=== PATIENT | male | born 1940 | race Caucasian/White ===

== ENCOUNTER 2018-12-28 10:23 | Emergency (ER) | payer MEDICARE ==
[~2018-12-28] VITALS: Ht 172.7 cm; Wt 130.0 kg
[2018-12-28] MEDS ORDERED: NITROGLYCERIN OINT 1GM/INCH UDPKT TD ONE (11:15)
[2018-12-28] MEDS ORDERED: HYDRALAZINE 20MG/ML VIAL IV ONE (11:15)
[2018-12-28] MEDS ORDERED: ASPIRIN 81MG TABLET PO ONE (11:15)
[2018-12-28 11:25] LABS: BASOPHILS % 1.1 % (0.0-2.0); CHLORIDE 102 mEq/L (98-107); EOSINOPHILS % 1.4 % (0.0-5.0); HEMATOCRIT. 41.4 % (42.0-52.0); HEMOGLOBIN. 13.6 g/dL (14.0-18.0); LYMPHOCYTES % 20.9 % (20.0-50.0); MEAN CORPUSCULAR HEMOGLOBIN 28.3 pg (28.0-32.0); MEAN PLATELET VOLUME 8.1 fl (7.4-10.4); MONOCYTES % 7.7 % (2.0-8.0); NEUTROPHILS % 68.9 % (40.0-76.0); PLATELET 367 x1000/uL (130-400); RED BLOOD CELL COUNT 4.81 mill/uL (4.7-6.1); RED CELL DISTRIBUTION WIDTH 15.5 % (11.6-14.6)
[2018-12-28 11:30] LABS: INR 1.1; PARTIAL THROMBOPLASTIN TIME 31.2 sec (23.4-31.0); PROTHROMBIN TIME 11.4 sec (9.6-11.0)
[2018-12-28 11:44] LABS: CLARITY URINE CLEAR (CLEAR); COLOR URINE YELLOW (YELLOW); KETONES URINE NEGATIVE (NEGATIVE); LEUKOCYTE ESTERASE URINE NEGATIVE (NEGATIVE); NITRITE URINE NEGATIVE (NEGATIVE); OCCULT BLOOD URINE 1+ (NEGATIVE); PH URINE 6.5 (4.5-8.0); PROTEIN URINE NEGATIVE (NEGATIVE); SPECIFIC GRAVITY URINE 1.011 (1.005-1.030); UROBILINOGEN URINE 0.2 E.U./dL (0.2-1.0)
[2018-12-28] MEDS ORDERED: FUROSEMIDE 40MG/4ML VIAL IVP ONE (11:45)
[2018-12-28 17:32] VITALS: BP 156/90
== END 2018-12-28 18:03 | disposition short-term general hospital (02) ==
LOC: ER 10:23 → EDBEDREQ 12:02 → ER 18:03 → CANBEDREQ 12-29 00:24
DX: R33.9 Retention of urine, unspecified (principal); I11.0 Hypertensive heart disease with heart failure; I50.9 Heart failure, unspecified; E11.9 Type 2 diabetes mellitus without complications; E78.00 Pure hypercholesterolemia, unspecified; I25.10 Atherosclerotic heart disease of native coronary artery without angina pectoris
CPT/HCPCS: 36415; 51702; 71045; 80053; 81003; 83880; 84484; 85025; 85610; 85730; 87086; 93005; 96374; 96375; 99285; J0360; J1940

== ENCOUNTER 2019-01-16 15:50 | Inpatient (IN) | payer MEDICARE ==
[~2019-01-16] VITALS: Ht 167.6 cm; Wt 128.4 kg
[2019-01-16] MEDS ORDERED: ONDANSETRON HCL 4MG/2ML INJ IV STA (16:13)
[2019-01-16] MEDS ORDERED: PIPERACILLIN/TAZ 3.375G PREMIX 50 ML IV ONE (16:15)
[2019-01-16] MEDS ORDERED: SODIUM CHLORIDE 0.9% 1000ML BAG (SEPSIS BOLUS) IV ONE (16:15)
[2019-01-16 16:39] LABS: BASOPHILS % 0.1 % (0.0-2.0); EOSINOPHILS % 0.8 % (0.0-5.0); HEMATOCRIT. 43.3 % (42.0-52.0); HEMOGLOBIN. 14.3 g/dL (14.0-18.0); MEAN CORPUSCULAR HEMOGLOBIN 28.7 pg (28.0-32.0); MEAN CORPUSCULAR VOLUME 86.7 fL (80.0-94.0); MEAN PLATELET VOLUME 8.8 fl (7.4-10.4); MONOCYTES % 1.1 % (2.0-8.0); PLATELET 192 x1000/uL (130-400); RED CELL DISTRIBUTION WIDTH 16.6 % (11.6-14.6)
[2019-01-16 16:44] LABS: CHLORIDE 102 mEq/L (98-107)
[2019-01-16 16:45] LABS: PROTHROMBIN TIME 10.6 sec (9.6-11.0)
[2019-01-16 16:52] LABS: BG BASE EXCESS 0.8 mmol/L (-2.0-2.0); BG BILEVEL POS AIRWAY PRESSURE 16/5; BG CARBOXYHEMOGLOBIN 0.2 % (0.5-1.5); BG DEOXYHEMOGLOBIN 0.3 % (0.0-5.0); BG FRACTION INSPIRED OXYGEN 100; BG HCO3 ACT 23.7 mmol/L (22.0-26.0); BG METHEMOGLOBIN 0.1 % (0.0-1.5); BG OXYGEN SATURATION 99.7 % (92.0-98.5); BG OXYHEMOGLOBIN 99.4 % (94.0-97.0); BG PCO2 32.8 mmHg (35.0-45.0); BG PH 7.476 (7.350-7.450); BG PO2 568.5 mmHg (75.0-100.0); BG SAMPLE SITE RIGHT RADIAL; BG TOTAL HEMOGLOBIN 13.8 g/dL (12.0-18.0); BG VENT MODE MASK - BIPAP
[2019-01-16] MEDS ORDERED: HYDROMORPHONE HCL/PF 2MG/ML CPJ IV ONE (18:15)
[2019-01-16 18:34] LABS: CLARITY URINE CLOUDY (CLEAR); COLOR URINE YELLOW (YELLOW); KETONES URINE NEGATIVE (NEGATIVE); LEUKOCYTE ESTERASE URINE 1+ (NEGATIVE); NITRITE URINE POSITIVE (NEGATIVE); OCCULT BLOOD URINE 2+ (NEGATIVE); PH URINE 5.5 (4.5-8.0); PROTEIN URINE 3+ (NEGATIVE); SPECIFIC GRAVITY URINE 1.017 (1.005-1.030)
[2019-01-16] MEDS ORDERED: HYDROCODONE/ACETAMINOPHEN 10/325MG TABLET PO PRN (21:00)
[2019-01-16] MEDS ORDERED: IPRATROPIUM/ALBUTEROL 0.5-3(2.5)MG/3ML NEB INH PRN (21:00)
[2019-01-16] MEDS ORDERED: HYDROMORPHONE HCL/PF 2MG/ML CPJ IV PRN (21:00)
[2019-01-16] MEDS ORDERED: HYDRALAZINE 20MG/ML VIAL IV PRN (21:00)
[2019-01-16] MEDS ORDERED: DOCUSATE SODIUM 100MG CAPSULE PO PRN (21:00)
[2019-01-16] MEDS ORDERED: DIPHENHYDRAMINE 50MG/ML VIAL IV PRN (21:00)
[2019-01-16] MEDS ORDERED: ONDANSETRON HCL 4MG/2ML INJ IV PRN (21:00)
[2019-01-16] MEDS ORDERED: GUAIFENESIN 200MG/10ML SUGAR FREE UDC PO PRN (21:00)
[2019-01-16] MEDS ORDERED: NA PHOS,M-B/NA PHOS,DI-BA ENEMA 118ML PR PRN (21:00)
[2019-01-16] MEDS ORDERED: ENOXAPARIN 40MG/0.4ML SYR SUBCUT SCH (21:00)
[2019-01-16] MEDS ORDERED: MAGNESIUM/ALUMINUM HYDROXIDE/SIMETHICONE 30ML UDC PO PRN (21:00)
[2019-01-16] MEDS ORDERED: CLONIDINE 0.1MG TABLET PO PRN (21:00)
[2019-01-16] MEDS ORDERED: LORAZEPAM 2MG/ML CPJ IV PRN (21:00)
[2019-01-16] MEDS ORDERED: DEXTROSE 50% WATER 50ML SYRINGE IV PRN (22:45)
[2019-01-17] VITALS: BP_SYST 114; BP_DIAS 60; BP_DIAS 62
[2019-01-17 00:57] LABS: CREATINE KINASE MB FRACTION 1.2 ng/mL (0.5-3.6)
[2019-01-17] MEDS ORDERED: VANCOMYCIN 1,750 MG in DEXT 5% WATER 500 ML IV SCH (01:00)
[2019-01-17] MEDS: PIPERACILLIN/TAZ 3.375G PREMIX 50 ML IV SCH ×4 (01:22→21:36)
[2019-01-17] MEDS: ACETAMINOPHEN 325MG TABLET PO PRN (01:37)
[2019-01-17 04:00] VITALS: BP 143/72
[2019-01-17] MEDS ORDERED: METO-411 MT (06:24)
[2019-01-17] MEDS ORDERED: METF500S7 PO (06:24)
[2019-01-17] MEDS ORDERED: OXYB5TAB11 MT (06:24)
[2019-01-17] MEDS ORDERED: FISH MT (06:24)
[2019-01-17] MEDS ORDERED: NIFE30TA83 PO (06:24)
[2019-01-17] MEDS ORDERED: LOSA50TA41 MT (06:24)
[2019-01-17] MEDS ORDERED: TAMS-11 MT (06:24)
[2019-01-17] MEDS ORDERED: ATOR10TA69 MT (06:24)
[2019-01-17] MEDS: BLOOD SUGAR DIAGNOSTIC STRIP TEST SCH ×4 (06:55→21:36)
[2019-01-17] MEDS: SODIUM CHLORIDE 0.9% INJ 3ML FLUSH IVF SCH ×3 (06:55→21:36)
[2019-01-17] MEDS: INSULIN LISPRO 100 UNITS/ML SUBCUT SCH ×4 (07:11→21:35)
[2019-01-17 08:00] VITALS: BP 125/64
[2019-01-17 08:02] LABS: HEMATOCRIT. 38.4 % (42.0-52.0); HEMOGLOBIN. 12.5 g/dL (14.0-18.0); MEAN CORPUSCULAR HEMOGLOBIN 28.5 pg (28.0-32.0); MEAN CORPUSCULAR VOLUME 87.2 fL (80.0-94.0); PLATELET 156 x1000/uL (130-400); RED BLOOD CELL COUNT 4.41 mill/uL (4.7-6.1); RED CELL DISTRIBUTION WIDTH 16.3 % (11.6-14.6)
[2019-01-17 08:30] LABS: CHLORIDE 105 mEq/L (98-107)
[2019-01-17 08:42] LABS: CREATINE KINASE MB FRACTION 1.6 ng/mL (0.5-3.6)
[2019-01-17 08:43] LABS: T4 FREE 0.94 ng/dL (0.76-1.46)
[2019-01-17 08:45] LABS: CREATINE KINASE 86 IU/L (39-308); HDL CHOLESTEROL 53 mg/dL (40-59); LDL CHOLESTEROL 52 mg/dL (5-100)
[2019-01-17] MEDS: ASPIRIN 81MG EC TABLET PO SCH (09:40)
[2019-01-17] MEDS: ENOXAPARIN 30MG/0.3ML SYR SUBCUT SCH ×2 (09:41→21:36)
[2019-01-17 12:00] VITALS: BP 112/69
[2019-01-17 13:17] LABS: PLATELET ESTIMATE NORMAL
[2019-01-17 15:39] LABS: CREATINE KINASE MB FRACTION 1.5 ng/mL (0.5-3.6)
[2019-01-17 15:40] LABS: T4 FREE 0.91 ng/dL (0.76-1.46)
[2019-01-17 16:00] VITALS: BP 144/73
[2019-01-17] MEDS: VANCOMYCIN 1250MG in DEXTROSE 5% WATER 250ML IV SCH (19:37)
[2019-01-17] MEDS ORDERED: VANCOMYCIN 1500MG in DEXTROSE 5% WATER 250ML IV SCH (20:00)
[2019-01-17 20:46] VITALS: BP 156/88
[2019-01-18] VITALS: BP 136/70
[2019-01-18 00:36] LABS: CREATINE KINASE MB FRACTION 2.2 ng/mL (0.5-3.6)
[2019-01-18 04:00] VITALS: BP 144/79
[2019-01-18] MEDS: PIPERACILLIN/TAZ 3.375G PREMIX 50 ML IV SCH ×2 (04:15→10:04)
[2019-01-18] MEDS: ACETAMINOPHEN 325MG TABLET PO PRN ×2 (06:19→16:49)
[2019-01-18] MEDS: BLOOD SUGAR DIAGNOSTIC STRIP TEST SCH ×4 (06:20→20:33)
[2019-01-18] MEDS: SODIUM CHLORIDE 0.9% INJ 3ML FLUSH IVF SCH ×3 (06:20→21:35)
[2019-01-18] MEDS: INSULIN LISPRO 100 UNITS/ML SUBCUT SCH ×4 (06:35→21:25)
[2019-01-18 07:56] LABS: CREATINE KINASE MB FRACTION 1.5 ng/mL (0.5-3.6)
[2019-01-18 08:00] VITALS: BP 141/80
[2019-01-18] MEDS: ASPIRIN 81MG EC TABLET PO SCH (10:04)
[2019-01-18] MEDS: ENOXAPARIN 30MG/0.3ML SYR SUBCUT SCH ×2 (10:04→21:25)
[2019-01-18 12:00] VITALS: BP 142/79
[2019-01-18 12:15] LABS: HEMATOCRIT 35.3 % (42.0-52.0); HEMOGLOBIN 11.6 g/dL (14.0-18.0); MEAN CORPUSCULAR HEMOGLOBIN 28.4 pg (28.0-32.0); MEAN CORPUSCULAR VOLUME 86.4 fL (80.0-94.0); PLATELET 139 x1000/uL (130-400); RED BLOOD CELL COUNT 4.09 mill/uL (4.7-6.1); RED CELL DISTRIBUTION WIDTH 16.2 % (11.6-14.6)
[2019-01-18] MEDS: VANCOMYCIN 1250MG in DEXTROSE 5% WATER 250ML IV SCH (13:28)
[2019-01-18] MEDS ORDERED: CEFAZOLIN 1000MG PREMIX 50 ML IV SCH (14:00)
[2019-01-18] MEDS ORDERED: CEFAZOLIN SODIUM 1000MG/VIAL IV SCH (14:00)
[2019-01-18 16:00] VITALS: BP 144/82
[2019-01-18 20:00] VITALS: BP 157/89
[2019-01-18] MEDS: CEFAZOLIN 2000MG in DEXTROSE 5% WATER 100ML IV SCH (21:35)
[2019-01-18] MEDS: CARVEDILOL 3.125 MG TABLET PO SCH (23:07)
[2019-01-19] VITALS: BP 160/76
[2019-01-19] MEDS: ACETAMINOPHEN 325MG TABLET PO PRN (00:08)
[2019-01-19 04:00] VITALS: BP 150/85
[2019-01-19] MEDS: INSULIN LISPRO 100 UNITS/ML SUBCUT SCH ×2 (06:36→12:26)
[2019-01-19] MEDS: CEFAZOLIN 2000MG in DEXTROSE 5% WATER 100ML IV SCH (06:38)
[2019-01-19] MEDS: SODIUM CHLORIDE 0.9% INJ 3ML FLUSH IVF SCH (06:38)
[2019-01-19] MEDS: BLOOD SUGAR DIAGNOSTIC STRIP TEST SCH ×2 (06:38→11:58)
[2019-01-19 07:19] LABS: CHLORIDE 102 mEq/L (98-107)
[2019-01-19 07:28] LABS: BASOPHILS % 0.2 % (0.0-2.0); EOSINOPHILS % 0.5 % (0.0-5.0); HEMATOCRIT. 33.6 % (42.0-52.0); HEMOGLOBIN. 11.2 g/dL (14.0-18.0); LYMPHOCYTES % 9.4 % (20.0-50.0); MEAN CORPUSCULAR HEMOGLOBIN 28.7 pg (28.0-32.0); MEAN CORPUSCULAR VOLUME 85.8 fL (80.0-94.0); MEAN PLATELET VOLUME 8.8 fl (7.4-10.4); MONOCYTES % 10.2 % (2.0-8.0); NEUTROPHILS % 79.7 % (40.0-76.0); PLATELET 144 x1000/uL (130-400); RED BLOOD CELL COUNT 3.92 mill/uL (4.7-6.1)
[2019-01-19 08:00] VITALS: BP 169/92
[2019-01-19] MEDS: CARVEDILOL 3.125 MG TABLET PO SCH (09:50)
[2019-01-19] MEDS: ASPIRIN 81MG EC TABLET PO SCH (09:50)
[2019-01-19] MEDS: ENOXAPARIN 30MG/0.3ML SYR SUBCUT SCH (09:50)
[2019-01-19] MEDS ORDERED: MAGNESIUM 2 G PREMIX 50 ML IV SCH (11:00)
[2019-01-19 12:00] VITALS: BP 144/72
[2019-01-19 12:54] VITALS: BP 144/72
== END 2019-01-19 13:45 | disposition home or self-care (01) | DRG 871 ==
LOC: ER 15:50 → 5WST 20:25 → EDBEDREQ 20:33 → EDBEDREQSVC 20:33 → EDBEDREQTM 20:33 → ENRESERV 21:23
PROVIDERS: ADMIT Internal Medicine; ATTEND Internal Medicine
PROC: 5A09357 Assistance with Respiratory Ventilation, Less than 24 Consecutive Hours, Continuous Positive Airway Pressure (ICD-10-PCS; principal; 2019-01-16)
DX: A41.51 Sepsis due to Escherichia coli [E. coli] (principal); J96.00 Acute respiratory failure, unspecified whether with hypoxia or hypercapnia; N39.0 Urinary tract infection, site not specified; E87.4 Mixed disorder of acid-base balance; Z68.42 Body mass index [BMI] 45.0-49.9, adult; E66.01 Morbid (severe) obesity due to excess calories; I10 Essential (primary) hypertension; J44.9 Chronic obstructive pulmonary disease, unspecified; E11.9 Type 2 diabetes mellitus without complications; E78.00 Pure hypercholesterolemia, unspecified; E78.5 Hyperlipidemia, unspecified; R65.20 Severe sepsis without septic shock; H91.90 Unspecified hearing loss, unspecified ear; I25.10 Atherosclerotic heart disease of native coronary artery without angina pectoris; K59.00 Constipation, unspecified; R79.89 Other specified abnormal findings of blood chemistry; Z96.659 Presence of unspecified artificial knee joint; Z79.84 Long term (current) use of oral hypoglycemic drugs; Z87.891 Personal history of nicotine dependence
CPT/HCPCS: 36415; 36600; 71045; 80048; 80061; 82375; 82550; 82553; 82805; 82962; 83036; 83605; 83735; 83880; 84132; 84145; 84439; 84443; 84484; 85027; 85379; 87077; 87186; 93005; 93306; 93970; 94640; 94660; 96365; 96375; 99291; J0690; J1170; J1650; J1815; J2405; J2543; J3370; J3475; J7030; J7050; J7060; J7620; A4315

== ENCOUNTER 2019-01-21 11:38 | Emergency (ER) | payer MEDICARE ==
[~2019-01-21] VITALS: Ht 167.6 cm; Wt 129.0 kg
[~2019-01-21 11:38] MED LIST: ATOR10TA69 MT; FISH MT; LOSA50TA41 MT; METF500S7 PO; METO-411 MT; NIFE30TA83 PO; OXYB5TAB11 MT; TAMS-11 MT
[2019-01-21] MEDS ORDERED: IPRATROPIUM BROMIDE (0.02%) 0.5MG/2.5ML NEB HHN STA (12:22)
[2019-01-21] MEDS ORDERED: ALBUTEROL (0.083%) 2.5MG/3ML NEB HHN STA (12:22)
[2019-01-21 12:52] LABS: BASOPHILS % 0.3 % (0.0-2.0); EOSINOPHILS % 1.9 % (0.0-5.0); HEMATOCRIT. 38.2 % (42.0-52.0); HEMOGLOBIN. 12.9 g/dL (14.0-18.0); LYMPHOCYTES % 7.9 % (20.0-50.0); MEAN CORPUSCULAR HEMOGLOBIN 28.4 pg (28.0-32.0); MEAN CORPUSCULAR VOLUME 84.4 fL (80.0-94.0); MEAN PLATELET VOLUME 8.3 fl (7.4-10.4); MONOCYTES % 6.1 % (2.0-8.0); NEUTROPHILS % 83.8 % (40.0-76.0); PLATELET 238 x1000/uL (130-400); RED BLOOD CELL COUNT 4.52 mill/uL (4.7-6.1)
[2019-01-21 12:59] LABS: CHLORIDE 103 mEq/L (98-107)
[2019-01-21 13:10] LABS: CLARITY URINE CLEAR (CLEAR); COLOR URINE YELLOW (YELLOW); KETONES URINE NEGATIVE (NEGATIVE); LEUKOCYTE ESTERASE URINE NEGATIVE (NEGATIVE); NITRITE URINE NEGATIVE (NEGATIVE); OCCULT BLOOD URINE NEGATIVE (NEGATIVE); PH URINE 6.5 (4.5-8.0); PROTEIN URINE TRACE (NEGATIVE); SPECIFIC GRAVITY URINE 1.009 (1.005-1.030); UROBILINOGEN URINE 0.2 E.U./dL (0.2-1.0)
[2019-01-21] MEDS ORDERED: FUROSEMIDE 20MG/2ML VIAL IVP ONE (13:30)
[2019-01-21 19:11] VITALS: BP 135/71
== END 2019-01-21 19:53 | disposition short-term general hospital (02) ==
LOC: ER 11:38 → CANBEDREQ 20:32
DX: R33.9 Retention of urine, unspecified (principal); J45.909 Unspecified asthma, uncomplicated; E11.9 Type 2 diabetes mellitus without complications; E78.00 Pure hypercholesterolemia, unspecified; I11.9 Hypertensive heart disease without heart failure; Z79.899 Other long term (current) drug therapy; Z79.84 Long term (current) use of oral hypoglycemic drugs
CPT/HCPCS: 36415; 51702; 71045; 80053; 81003; 82962; 83880; 84484; 85025; 87086; 93005; 94640; 96374; 99285; J1940; J7611; A4315

== ENCOUNTER 2022-10-16 19:20 | Inpatient (IN) | payer MEDICARE ==
[~2022-10-16] VITALS: Ht 170.2 cm; Wt 124.3 kg
[~2022-10-16 19:20] MED LIST changes: -METF500S7 PO; +METF500S9 PO; +NIFE-33 PO; -NIFE30TA83 PO; -OXYB5TAB11 MT; +OXYB5TAB17 MT
[2022-10-16] MEDS ORDERED: ALBUTEROL (0.083%) 2.5MG/3ML NEB HHN STA (19:54)
[2022-10-16] MEDS ORDERED: IPRATROPIUM BROMIDE (0.02%) 0.5MG/2.5ML NEB HHN STA (19:54)
[2022-10-16] MEDS ORDERED: METHYLPREDNISOLONE SOD SUCC 125 MG/2 ML VIAL IV STA (19:54)
[2022-10-16] MEDS ORDERED: NITROGLYCERIN 0.4MG TABLET SL SL PRN (20:00)
[2022-10-16] MEDS ORDERED: ASPIRIN 325MG TABLET PO ONE (20:00)
[2022-10-16 20:08] LABS: BASOPHILS % 0.6 % (0.0-2.0); EOSINOPHILS % 1.7 % (0.0-5.0); HEMATOCRIT. 40.4 % (42.0-52.0); HEMOGLOBIN. 13.5 g/dL (14.0-18.0); LYMPHOCYTES % 12.7 % (20.0-50.0); MEAN CORPUSCULAR HEMOGLOBIN 29.3 pg (28.0-32.0); MEAN CORPUSCULAR VOLUME 88.1 fL (80.0-94.0); MEAN PLATELET VOLUME 8.8 fl (7.4-10.4); MONOCYTES % 8.5 % (2.0-8.0); NEUTROPHILS % 76.5 % (40.0-76.0); PLATELET 190 x1000/uL (130-400); RED BLOOD CELL COUNT 4.59 mill/uL (4.7-6.1); RED CELL DISTRIBUTION WIDTH 15.8 % (11.6-14.6)
[2022-10-16 20:19] LABS: CHLORIDE 106 mEq/L (98-107)
[2022-10-16] MEDS ORDERED: LEVOFLOXACIN 750MG PREMIX 150 ML IV ONE (20:45)
[2022-10-16 23:50] VITALS: BP 143/96
[2022-10-17] MEDS ORDERED: GUAIFENESIN 200MG/10ML SUGAR FREE UDC PO PRN (06:15)
[2022-10-17] MEDS ORDERED: CLONIDINE 0.1MG TABLET PO PRN (06:15)
[2022-10-17] MEDS ORDERED: MAGNESIUM/ALUMINUM HYDROXIDE/SIMETHICONE 30ML UDC PO PRN (06:15)
[2022-10-17] MEDS ORDERED: ACETAMINOPHEN 325MG TABLET PO PRN ×2 (06:15)
[2022-10-17] MEDS ORDERED: IPRATROPIUM/ALBUTEROL 0.5-3(2.5)MG/3ML NEB HHN PRN (06:15)
[2022-10-17] MEDS ORDERED: DOCUSATE SODIUM 100MG CAPSULE PO PRN (06:15)
[2022-10-17] MEDS ORDERED: ONDANSETRON HCL 4MG/2ML INJ IV PRN (06:15)
[2022-10-17] MEDS ORDERED: DEXTROSE 50% WATER 50ML SYRINGE IV PRN (06:30)
[2022-10-17] MEDS: BLOOD SUGAR DIAGNOSTIC STRIP TEST SCH ×4 (07:40→20:43)
[2022-10-17 08:00] VITALS: BP 161/87
[2022-10-17] MEDS: PANTOPRAZOLE 40MG DR TABLET PO SCH ×2 (08:30→20:43)
[2022-10-17] MEDS: TAMSULOSIN HCL 0.4MG SR CAPSULE PO SCH (08:30)
[2022-10-17] MEDS: LOSARTAN POTASSIUM 50 MG TABLET PO SCH (08:31)
[2022-10-17] MEDS: ENOXAPARIN 40MG/0.4ML SYR SUBCUT SCH ×2 (08:31→20:43)
[2022-10-17] MEDS: INSULIN LISPRO 100 UNITS/ML SUBCUT SCH ×7 (08:32→20:44)
[2022-10-17 09:16] LABS: TOTAL IRON BINDING CAPACITY 278 ug/dL (250-450)
[2022-10-17 10:05] VITALS: BP 145/80
[2022-10-17 10:11] LABS: FOLIC ACID (FOLATE) SERUM 18.3 ng/mL (>5.38)
[2022-10-17 12:00] VITALS: BP 201/119
[2022-10-17 13:30] VITALS: BP 126/68
[2022-10-17 16:00] VITALS: BP 128/71
[2022-10-17 17:06] LABS: CREATINE KINASE MB FRACTION 4.3 ng/mL (0.5-3.6)
[2022-10-17] MEDS: FUROSEMIDE 40MG/4ML VIAL IVP SCH (18:40)
[2022-10-17 20:00] VITALS: BP 152/88
[2022-10-17] MEDS ORDERED: NA PHOS,M-B/NA PHOS,DI-BA ENEMA 118ML PR NR (20:00)
[2022-10-17] MEDS: BUDESONIDE 0.5MG/2ML NEB HHN SCH (20:30)
[2022-10-17] MEDS: IPRATROPIUM/ALBUTEROL 0.5-3(2.5)MG/3ML NEB HHN SCH (20:41)
[2022-10-17] MEDS: INSULIN GLARGINE 100 UNITS/ML SUBCUT SCH (21:43)
[2022-10-18] VITALS: BP 129/68
[2022-10-18 00:33] LABS: CREATINE KINASE MB FRACTION 5.3 ng/mL (0.5-3.6)
[2022-10-18] MEDS: IPRATROPIUM/ALBUTEROL 0.5-3(2.5)MG/3ML NEB HHN SCH ×4 (01:24→20:41)
[2022-10-18 04:00] VITALS: BP 115/56
[2022-10-18 04:05] LABS: CLARITY URINE CLOUDY (CLEAR); COLOR URINE YELLOW (YELLOW); KETONES URINE 1+ (NEGATIVE); LEUKOCYTE ESTERASE URINE 1+ (NEGATIVE); NITRITE URINE NEGATIVE (NEGATIVE); OCCULT BLOOD URINE 3+ (NEGATIVE); PH URINE 5.5 (4.5-8.0); PROTEIN URINE 3+ (NEGATIVE); SPECIFIC GRAVITY URINE 1.026 (1.005-1.030)
[2022-10-18 04:30] LABS: *AMPHETAMINES SCREEN URINE NEGATIVE (NEGATIVE); *BARBITURATES SCREEN URINE NEGATIVE (NEGATIVE); *BENZODIAZEPINES SCREEN URINE NEGATIVE (NEGATIVE); *COCAINE SCREEN URINE NEGATIVE (NEGATIVE); CANNABINOID URINE SCREEN NEGATIVE (NEGATIVE); METHADONE URINE SCREEN NEGATIVE (NEGATIVE); OPIATES URINE SCREEN NEGATIVE (NEGATIVE); PHENCYCLIDINE URINE SCREEN NEGATIVE (NEGATIVE)
[2022-10-18] MEDS ORDERED: NA PHOS,M-B/NA PHOS,DI-BA ENEMA 118ML PR ONE (06:00)
[2022-10-18 07:39] LABS: BASOPHILS % 0.1 % (0.0-2.0); HEMATOCRIT. 40.3 % (42.0-52.0); HEMOGLOBIN. 13.4 g/dL (14.0-18.0); LYMPHOCYTES % 7.8 % (20.0-50.0); MEAN CORPUSCULAR HEMOGLOBIN 29.4 pg (28.0-32.0); MEAN CORPUSCULAR VOLUME 88.4 fL (80.0-94.0); MEAN PLATELET VOLUME 9.7 fl (7.4-10.4); MONOCYTES % 7.4 % (2.0-8.0); NEUTROPHILS % 84.7 % (40.0-76.0); PLATELET 208 x1000/uL (130-400); RED BLOOD CELL COUNT 4.56 mill/uL (4.7-6.1); RED CELL DISTRIBUTION WIDTH 15.4 % (11.6-14.6)
[2022-10-18] MEDS: PANTOPRAZOLE 40MG DR TABLET PO SCH ×2 (07:40→21:05)
[2022-10-18] MEDS: INSULIN LISPRO 100 UNITS/ML SUBCUT SCH ×7 (07:40→21:00)
[2022-10-18 08:00] VITALS: BP 139/70
[2022-10-18] MEDS ORDERED: NA PHOS,M-B/NA PHOS,DI-BA ENEMA 118ML PR NR ×2 (08:00→09:45)
[2022-10-18] MEDS: BLOOD SUGAR DIAGNOSTIC STRIP TEST SCH ×4 (08:03→21:06)
[2022-10-18 08:04] LABS: CHLORIDE 101 mEq/L (98-107)
[2022-10-18 08:18] LABS: CREATINE KINASE 128 IU/L (39-308); CREATINE KINASE MB FRACTION 5.1 ng/mL (0.5-3.6); HDL CHOLESTEROL 61 mg/dL (40-59); LDL CHOLESTEROL 87 mg/dL (5-100); T4 FREE 1.05 ng/dL (0.76-1.46)
[2022-10-18] MEDS: BUDESONIDE 0.5MG/2ML NEB HHN SCH ×2 (08:45→20:41)
[2022-10-18] MEDS: FUROSEMIDE 40MG/4ML VIAL IVP SCH (09:29)
[2022-10-18] MEDS: ENOXAPARIN 40MG/0.4ML SYR SUBCUT SCH (09:29)
[2022-10-18] MEDS ORDERED: VANCOMYCIN 2,000 MG in DEXT 5% WATER 500 ML IV SCH (10:00)
[2022-10-18] MEDS: LOSARTAN POTASSIUM 50 MG TABLET PO SCH (10:45)
[2022-10-18] MEDS: TAMSULOSIN HCL 0.4MG SR CAPSULE PO SCH (10:46)
[2022-10-18 12:00] VITALS: BP 140/53
[2022-10-18] MEDS: PIPERACILLIN/TAZOBACTAM 3.375 G in DEXTROSE 5% WATER 50 ML IV SCH ×2 (14:26→21:05)
[2022-10-18 16:00] VITALS: BP 131/46
[2022-10-18 20:00] VITALS: BP 145/87
[2022-10-18] MEDS: ENOXAPARIN 30MG/0.3ML SYR SUBCUT SCH (21:05)
[2022-10-18] MEDS: INSULIN GLARGINE 100 UNITS/ML SUBCUT SCH (21:14)
[2022-10-19] VITALS: BP 124/69
[2022-10-19] MEDS: IPRATROPIUM/ALBUTEROL 0.5-3(2.5)MG/3ML NEB HHN SCH ×4 (01:21→21:26)
[2022-10-19 04:00] VITALS: BP 122/66
[2022-10-19] MEDS: PIPERACILLIN/TAZOBACTAM 3.375 G in DEXTROSE 5% WATER 50 ML IV SCH ×3 (06:07→22:00)
[2022-10-19] MEDS: BLOOD SUGAR DIAGNOSTIC STRIP TEST SCH ×4 (06:07→21:00)
[2022-10-19] MEDS: INSULIN LISPRO 100 UNITS/ML SUBCUT SCH ×7 (07:35→22:07)
[2022-10-19 07:38] LABS: BASOPHILS % 0.1 % (0.0-2.0); EOSINOPHILS % 0.7 % (0.0-5.0); HEMATOCRIT. 41.4 % (42.0-52.0); HEMOGLOBIN. 13.5 g/dL (14.0-18.0); MEAN CORPUSCULAR HEMOGLOBIN 29.1 pg (28.0-32.0); MEAN CORPUSCULAR VOLUME 88.8 fL (80.0-94.0); MEAN PLATELET VOLUME 9.6 fl (7.4-10.4); MONOCYTES % 9.2 % (2.0-8.0); PLATELET 193 x1000/uL (130-400); RED BLOOD CELL COUNT 4.66 mill/uL (4.7-6.1); RED CELL DISTRIBUTION WIDTH 15.6 % (11.6-14.6)
[2022-10-19 08:00] VITALS: BP 125/74
[2022-10-19] MEDS: FAMOTIDINE 20MG TABLET PO SCH ×2 (08:31→22:05)
[2022-10-19] MEDS: LOSARTAN POTASSIUM 50 MG TABLET PO SCH (08:31)
[2022-10-19] MEDS: ENOXAPARIN 30MG/0.3ML SYR SUBCUT SCH ×2 (08:31→22:01)
[2022-10-19] MEDS: FUROSEMIDE 40MG/4ML VIAL IVP SCH (08:31)
[2022-10-19] MEDS: TAMSULOSIN HCL 0.4MG SR CAPSULE PO SCH (08:32)
[2022-10-19] MEDS: VANCOMYCIN 1.25GM PMX (XELLIA) 250 ML IV SCH (10:55)
[2022-10-19] MEDS: BUDESONIDE 0.5MG/2ML NEB HHN SCH ×2 (10:59→21:26)
[2022-10-19 12:00] VITALS: BP 121/76
[2022-10-19 16:00] VITALS: BP 134/70
[2022-10-19 20:00] VITALS: BP 115/54
[2022-10-19] MEDS: INSULIN GLARGINE 100 UNITS/ML SUBCUT SCH (22:08)
[2022-10-20] VITALS: BP 114/63
[2022-10-20] MEDS: IPRATROPIUM/ALBUTEROL 0.5-3(2.5)MG/3ML NEB HHN SCH ×4 (01:25→21:29)
[2022-10-20 04:00] VITALS: BP 105/66
[2022-10-20 05:46] LABS: HEMOGLOBIN 13.1 g/dL (14.0-18.0); MEAN CORPUSCULAR HEMOGLOBIN 29.6 pg (28.0-32.0); MEAN CORPUSCULAR VOLUME 87.9 fL (80.0-94.0); PLATELET 180 x1000/uL (130-400); RED BLOOD CELL COUNT 4.43 mill/uL (4.7-6.1); RED CELL DISTRIBUTION WIDTH 15.8 % (11.6-14.6)
[2022-10-20] MEDS: BLOOD SUGAR DIAGNOSTIC STRIP TEST SCH ×4 (05:46→21:00)
[2022-10-20] MEDS: PIPERACILLIN/TAZOBACTAM 3.375 G in DEXTROSE 5% WATER 50 ML IV SCH ×3 (05:46→22:03)
[2022-10-20] MEDS: BUDESONIDE 0.5MG/2ML NEB HHN SCH (07:32)
[2022-10-20] MEDS: INSULIN LISPRO 100 UNITS/ML SUBCUT SCH ×7 (07:40→21:45)
[2022-10-20 08:00] VITALS: BP 186/100
[2022-10-20] MEDS: LOSARTAN POTASSIUM 50 MG TABLET PO SCH (08:29)
[2022-10-20] MEDS: VANCOMYCIN 1.25GM PMX (XELLIA) 250 ML IV SCH (08:29)
[2022-10-20] MEDS: FAMOTIDINE 20MG TABLET PO SCH ×2 (08:29→21:45)
[2022-10-20] MEDS: TAMSULOSIN HCL 0.4MG SR CAPSULE PO SCH (08:30)
[2022-10-20] MEDS: FUROSEMIDE 40MG/4ML VIAL IVP SCH (08:30)
[2022-10-20] MEDS: ENOXAPARIN 30MG/0.3ML SYR SUBCUT SCH ×2 (09:00→21:44)
[2022-10-20 12:00] VITALS: BP 163/94
[2022-10-20 16:00] VITALS: BP 128/73
[2022-10-20 20:00] VITALS: BP 125/69
[2022-10-20] MEDS: INSULIN GLARGINE 100 UNITS/ML SUBCUT SCH (21:45)
[2022-10-21] VITALS: BP 132/68
[2022-10-21] MEDS: IPRATROPIUM/ALBUTEROL 0.5-3(2.5)MG/3ML NEB HHN SCH ×2 (01:30→13:40)
[2022-10-21 04:00] VITALS: BP 152/86
[2022-10-21] MEDS: PIPERACILLIN/TAZOBACTAM 3.375 G in DEXTROSE 5% WATER 50 ML IV SCH ×2 (05:06→14:24)
[2022-10-21] MEDS ORDERED: IODIXANOL 320MG/ML 100 ML BOTTLE IV ONE (07:36)
[2022-10-21] MEDS: BLOOD SUGAR DIAGNOSTIC STRIP TEST SCH ×3 (07:40→17:36)
[2022-10-21] MEDS: INSULIN LISPRO 100 UNITS/ML SUBCUT SCH ×6 (07:40→17:36)
[2022-10-21] MEDS ORDERED: FENTANYL CITRATE/PF 50MCG/ML 2ML VIAL ONE (07:40)
[2022-10-21] MEDS ORDERED: HEPARIN 1000 UNITS/ML 10ML ONE (07:40)
[2022-10-21] MEDS ORDERED: DIPHENHYDRAMINE 50MG/ML VIAL ONE (07:40)
[2022-10-21] MEDS ORDERED: LIDOCAINE HCL/PF 1% 10 MG/ML 5ML VIAL ONE ×2 (07:40→08:20)
[2022-10-21] MEDS ORDERED: MIDAZOLAM HCL 2 MG/2 ML VIAL ONE (07:41)
[2022-10-21] MEDS ORDERED: VERAPAMIL HCL 2.5 MG/1 ML 2ML VIAL IV ONE (07:48)
[2022-10-21 08:00] VITALS: BP 122/79
[2022-10-21] MEDS ORDERED: HYDRALAZINE 20MG/ML VIAL ONE (08:39)
[2022-10-21] MEDS: VANCOMYCIN 1.25GM PMX (XELLIA) 250 ML IV SCH (09:00)
[2022-10-21] MEDS: TAMSULOSIN HCL 0.4MG SR CAPSULE PO SCH (09:00)
[2022-10-21] MEDS: ENOXAPARIN 30MG/0.3ML SYR SUBCUT SCH (09:00)
[2022-10-21] MEDS: FAMOTIDINE 20MG TABLET PO SCH (09:00)
[2022-10-21] MEDS: LOSARTAN POTASSIUM 50 MG TABLET PO SCH (09:00)
[2022-10-21] MEDS ORDERED: ATROPINE SULFATE 1MG/10ML SYR IV PRN (09:15)
[2022-10-21] MEDS ORDERED: ACETAMINOPHEN 325MG TABLET PO PRN (09:15)
[2022-10-21 12:00] VITALS: BP 122/68
[2022-10-21] MEDS ORDERED: SILDENAFIL CITRATE 20MG TABLET PO SCH (14:00)
[2022-10-21] MEDS ORDERED: VANCOMYCIN 1.25GM PMX (XELLIA) 250 ML IV SCH (15:00)
[2022-10-21 16:00] VITALS: BP 111/64
[2022-10-21 18:06] VITALS: BP 111/64
== END 2022-10-21 18:35 | disposition home or self-care (01) | DRG 286 ==
LOC: ER 19:20 → 7WST 21:26 → EDBEDREQTM 21:29 → EDBEDREQ 21:29
PROVIDERS: ADMIT Hospitalist; ATTEND Hospitalist
PROC: 4A023N6 Measurement of Cardiac Sampling and Pressure, Right Heart, Percutaneous Approach (ICD-10-PCS; principal; 2022-10-21)
PROC: B2111ZZ Fluoroscopy of Multiple Coronary Arteries using Low Osmolar Contrast (ICD-10-PCS; 2022-10-21)
DX: I25.10 Atherosclerotic heart disease of native coronary artery without angina pectoris (principal); I50.33 Acute on chronic diastolic (congestive) heart failure; J96.00 Acute respiratory failure, unspecified whether with hypoxia or hypercapnia; J84.9 Interstitial pulmonary disease, unspecified; E46 Unspecified protein-calorie malnutrition; E87.20 Acidosis, unspecified; Z68.41 Body mass index [BMI] 40.0-44.9, adult; J44.0 Chronic obstructive pulmonary disease with (acute) lower respiratory infection; I35.0 Nonrheumatic aortic (valve) stenosis; D63.8 Anemia in other chronic diseases classified elsewhere; E11.9 Type 2 diabetes mellitus without complications; E66.01 Morbid (severe) obesity due to excess calories; E78.00 Pure hypercholesterolemia, unspecified; H91.90 Unspecified hearing loss, unspecified ear; N40.0 Benign prostatic hyperplasia without lower urinary tract symptoms; Z96.653 Presence of artificial knee joint, bilateral; E11.65 Type 2 diabetes mellitus with hyperglycemia; N40.1 Benign prostatic hyperplasia with lower urinary tract symptoms; N28.9 Disorder of kidney and ureter, unspecified; I27.20 Pulmonary hypertension, unspecified; R33.8 Other retention of urine; I16.0 Hypertensive urgency; Z79.899 Other long term (current) drug therapy; Z87.891 Personal history of nicotine dependence; I11.0 Hypertensive heart disease with heart failure
CPT/HCPCS: 36415; 71045; 80048; 80053; 80061; 80202; 80305; 81003; 82550; 82553; 82607; 82728; 82746; 82962; 83036; 83540; 83550; 83605; 83880; 84145; 84153; 84439; 84443; 84484; 85025; 85027; 85379; 93005; 93306; 93970; 94640; 99285; J0360; J1200; J1644; J1650; J1815; J1940; J1956; J2250; J2543; J2930; J3010; J3370; J3490; J7060; J7626; Q9967; G0103

== ENCOUNTER 2023-07-01 09:04 | Inpatient (IN) | payer MEDICARE ==
[~2023-07-01] VITALS: Ht 172.7 cm; Wt 130.6 kg
[2023-07-01] MEDS ORDERED: FUROSEMIDE 40MG/4ML VIAL IVP NR (10:00)
[2023-07-01 10:23] LABS: BASOPHILS % 0.8 % (0.0-2.0); EOSINOPHILS % 5.8 % (0.0-5.0); HEMATOCRIT. 39.6 % (42.0-52.0); LYMPHOCYTES % 16.3 % (20.0-50.0); MEAN CORPUSCULAR HEMOGLOBIN 29.7 pg (28.0-32.0); MEAN CORPUSCULAR VOLUME 89.9 fL (80.0-94.0); MEAN PLATELET VOLUME 8.3 fl (7.4-10.4); MONOCYTES % 10.2 % (2.0-8.0); NEUTROPHILS % 66.9 % (40.0-76.0); PLATELET 183 x1000/uL (130-400); RED CELL DISTRIBUTION WIDTH 15.1 % (11.6-14.6)
[2023-07-01 11:17] LABS: CLARITY URINE CLEAR (CLEAR); COLOR URINE YELLOW (YELLOW); GLUCOSE URINE NEGATIVE (NEGATIVE); KETONES URINE NEGATIVE (NEGATIVE); LEUKOCYTE ESTERASE URINE 2+ (NEGATIVE); NITRITE URINE POSITIVE (NEGATIVE); OCCULT BLOOD URINE NEGATIVE (NEGATIVE); PROTEIN URINE NEGATIVE (NEGATIVE); SPECIFIC GRAVITY URINE 1.008 (1.005-1.030); UROBILINOGEN URINE 0.2 E.U./dL (0.2-1.0)
[2023-07-01 11:22] LABS: ALANINE AMINOTRANSFERASE 9 IU/L (10-49); ALBUMIN 4.1 g/dL (3.2-4.8); ASPARTATE AMINOTRANSFERASE 16 IU/L (<34); BILIRUBIN TOTAL 0.5 mg/dL (0.1-1.0); CALCIUM 9.7 mg/dL (8.7-10.4); CARBON DIOXIDE 29 mEq/L (21-32); CHLORIDE 105 mEq/L (98-107); CREATININE 1.4 mg/dL (0.6-1.3); GLUCOSE 111 mg/dL (70-105); POTASSIUM 4.5 mEq/L (3.5-5.1); PROTEIN TOTAL 7.4 g/dL (6.0-8.3); SODIUM 140 mEq/L (136-145); UREA NITROGEN BLOOD 33 mg/dL (9-23)
[2023-07-01 11:46] LABS: HYALINE CASTS URINE 0-5 /lpf; RBC URINE 0-2 /hpf (0-2); WBC URINE 25-50 /hpf (0-2)
[2023-07-01 11:47] LABS: BACTERIA URINE 2+; SQUAMOUS EPITHELIAL CELL URINE RARE /lpf (RARE/1+)
[2023-07-01] MEDS ORDERED: CEFTRIAXONE 1GM PREMIX 50 ML IV NR (12:00)
[2023-07-01 12:37] LABS: TROPONIN I HIGH SENSITIVITY 55 ng/L (3.0-53)
[2023-07-01] MEDS ORDERED: DOCUSATE SODIUM 100MG CAPSULE PO PRN (14:30)
[2023-07-01] MEDS ORDERED: ONDANSETRON HCL 4MG/2ML INJ IV PRN (14:30)
[2023-07-01] MEDS ORDERED: MAGNESIUM/ALUMINUM HYDROXIDE/SIMETHICONE 30ML UDC PO PRN (14:30)
[2023-07-01] MEDS ORDERED: CLONIDINE 0.1MG TABLET PO PRN (14:30)
[2023-07-01] MEDS ORDERED: DEXTROSE 50% WATER 50ML SYRINGE IV PRN (14:30)
[2023-07-01] MEDS ORDERED: GUAIFENESIN 200MG/10ML SUGAR FREE UDC PO PRN (14:30)
[2023-07-01] MEDS ORDERED: HYDROCODONE/ACETAMINOPHEN 5/325MG TABLET PO PRN (14:30)
[2023-07-01] MEDS ORDERED: IPRATROPIUM/ALBUTEROL 0.5-3(2.5)MG/3ML NEB HHN PRN ×2 (14:30)
[2023-07-01] MEDS ORDERED: ACETAMINOPHEN 325MG TABLET PO PRN ×2 (14:30)
[2023-07-01] MEDS ORDERED: NALOXONE HCL 0.4MG/ML VIAL IV PRN (14:45)
[2023-07-01 16:00] VITALS: BP_SYST 102; BP_SYST 129; BP_DIAS 90; BP_DIAS 91; PULSE 62; PULSE 78; RESP 16; TEMP 98.2
[2023-07-01] MEDS ORDERED: VANCOMYCIN 2,000 MG in DEXT 5% WATER 500 ML IV NR (16:00)
[2023-07-01] MEDS ORDERED: VANCOMYCIN 2,000 MG in DEXT 5% WATER 500 ML IV SCH (16:00)
[2023-07-01 16:38] LABS: IRON 66 ug/dL (65-175); TOTAL IRON BINDING CAPACITY 301 ug/dl (250-425)
[2023-07-01] MEDS: BLOOD SUGAR DIAGNOSTIC STRIP TEST SCH ×2 (16:50→21:37)
[2023-07-01] MEDS: INSULIN LISPRO 100 UNITS/ML SUBCUT SCH ×2 (17:20→21:48)
[2023-07-01] MEDS: FUROSEMIDE 40MG/4ML VIAL IV SCH (18:25)
[2023-07-01] MEDS: ENOXAPARIN 30MG/0.3ML SYR SUBCUT SCH (18:25)
[2023-07-01 19:47] LABS: FERRITIN 69 ng/mL (22-322); FOLIC ACID (FOLATE) SERUM > 20.00 ng/mL (>5.38); VITAMIN B12 SERUM 423 pg/mL (211-911)
[2023-07-01 20:00] VITALS: BP 100/88; PULSE 81; RESP 20; TEMP 97.8
[2023-07-01] MEDS: ATORVASTATIN CALCIUM 40MG TABLET PO SCH (21:38)
[2023-07-01] MEDS: PIPERACILLIN/TAZOBACTAM 3.375 G in DEXTROSE 5% WATER 50 ML IV SCH ×2 (21:50→22:05)
[2023-07-02] VITALS (7 sets, daily range): BP systolic 126–166; BP diastolic 75–89; PULSE 72–80; RESP 17–24; TEMP 97.1–97.8
[2023-07-02] MEDS: ENOXAPARIN 30MG/0.3ML SYR SUBCUT SCH ×2 (05:13→17:00)
[2023-07-02] MEDS: PIPERACILLIN/TAZOBACTAM 3.375 G in DEXTROSE 5% WATER 50 ML IV SCH ×3 (05:13→22:21)
[2023-07-02] MEDS: BLOOD SUGAR DIAGNOSTIC STRIP TEST SCH ×4 (06:45→20:38)
[2023-07-02 06:49] LABS: BASOPHILS % 0.7 % (0.0-2.0); EOSINOPHILS % 5.7 % (0.0-5.0); HEMOGLOBIN. 12.8 g/dL (14.0-18.0); LYMPHOCYTES % 16.8 % (20.0-50.0); MEAN CORPUSCULAR HEMOGLOBIN 29.8 pg (28.0-32.0); MEAN CORPUSCULAR HGB CONC 32.8 g/dL (31.0-37.0); MEAN CORPUSCULAR VOLUME 90.7 fL (80.0-94.0); MEAN PLATELET VOLUME 8.4 fl (7.4-10.4); MONOCYTES % 11.5 % (2.0-8.0); NEUTROPHILS % 65.3 % (40.0-76.0); PLATELET 163 x1000/uL (130-400); RED CELL DISTRIBUTION WIDTH 14.9 % (11.6-14.6); WHITE BLOOD COUNT 8.3 x1000/uL (4.5-11.0)
[2023-07-02] MEDS: INSULIN LISPRO 100 UNITS/ML SUBCUT SCH ×4 (07:20→20:39)
[2023-07-02 07:56] LABS: ALANINE AMINOTRANSFERASE 8 IU/L (10-49); ALBUMIN 3.7 g/dL (3.2-4.8); ASPARTATE AMINOTRANSFERASE 18 IU/L (<34); BILIRUBIN TOTAL 0.7 mg/dL (0.1-1.0); CALCIUM 9.3 mg/dL (8.7-10.4); CARBON DIOXIDE 28 mEq/L (21-32); CHLORIDE 103 mEq/L (98-107); CHOLESTEROL 113 mg/dL (<200); CREATININE 1.3 mg/dL (0.6-1.3); GLUCOSE 127 mg/dL (70-105); HDL CHOLESTEROL 44 mg/dL (>55); LDL CHOLESTEROL 49 mg/dL (5-100); POTASSIUM 4.3 mEq/L (3.5-5.1); PROTEIN TOTAL 6.9 g/dL (6.0-8.3); SODIUM 139 mEq/L (136-145); T4 FREE 0.94 ng/dL (0.89-1.76); THYROID STIMULATING HORMONE 2.85 uIU/mL (0.55-4.78); TRIGLYCERIDE 71 mg/dL (0-150); UREA NITROGEN BLOOD 30 mg/dL (9-23)
[2023-07-02] MEDS: AMLODIPINE 5MG TABLET PO SCH (08:19)
[2023-07-02] MEDS: ASPIRIN 81MG TABLET PO SCH (08:19)
[2023-07-02] MEDS: METOPROLOL TARTRATE 25MG TABLET PO SCH ×2 (08:19→20:53)
[2023-07-02] MEDS: SPIRONOLACTONE 25MG TABLET PO SCH (08:20)
[2023-07-02] MEDS: FUROSEMIDE 40MG/4ML VIAL IV SCH ×2 (08:20→17:00)
[2023-07-02 11:17] LABS: CREATINE KINASE 100 IU/L (46-171)
[2023-07-02 16:24] LABS: TROPONIN I HIGH SENSITIVITY 42 ng/L (3.0-53)
[2023-07-02] MEDS: VANCOMYCIN 1.25GM PMX (XELLIA) 250 ML IV SCH (20:53)
[2023-07-02] MEDS: ATORVASTATIN CALCIUM 40MG TABLET PO SCH (20:53)
[2023-07-02] MEDS: PANTOT AC/MIN OIL/PET HY-PHL OINT (AQUAPHOR) TOP SCH (22:21)
[2023-07-03] VITALS (7 sets, daily range): BP systolic 111–151; BP diastolic 72–95; PULSE 60–80; RESP 17–20; TEMP 97.6–97.8
[2023-07-03] MEDS: ENOXAPARIN 30MG/0.3ML SYR SUBCUT SCH ×2 (05:16→16:55)
[2023-07-03] MEDS: PIPERACILLIN/TAZOBACTAM 3.375 G in DEXTROSE 5% WATER 50 ML IV SCH ×3 (05:16→22:00)
[2023-07-03 06:28] LABS: BASOPHILS % 0.6 % (0.0-2.0); HEMATOCRIT. 38.6 % (42.0-52.0); HEMOGLOBIN. 12.8 g/dL (14.0-18.0); LYMPHOCYTES % 13.8 % (20.0-50.0); MEAN CORPUSCULAR HEMOGLOBIN 30.2 pg (28.0-32.0); MEAN CORPUSCULAR HGB CONC 33.2 g/dL (31.0-37.0); MEAN CORPUSCULAR VOLUME 90.9 fL (80.0-94.0); MEAN PLATELET VOLUME 8.4 fl (7.4-10.4); MONOCYTES % 10.8 % (2.0-8.0); NEUTROPHILS % 70.8 % (40.0-76.0); PLATELET 159 x1000/uL (130-400); RED BLOOD CELL COUNT 4.25 mill/uL (4.7-6.1); RED CELL DISTRIBUTION WIDTH 14.7 % (11.6-14.6); WHITE BLOOD COUNT 8.8 x1000/uL (4.5-11.0)
[2023-07-03 06:47] LABS: ALANINE AMINOTRANSFERASE 7 IU/L (10-49); ALBUMIN 3.6 g/dL (3.2-4.8); ASPARTATE AMINOTRANSFERASE 14 IU/L (<34); BILIRUBIN TOTAL 0.9 mg/dL (0.1-1.0); CALCIUM 9.1 mg/dL (8.7-10.4); CARBON DIOXIDE 29 mEq/L (21-32); CHLORIDE 102 mEq/L (98-107); CREATININE 1.3 mg/dL (0.6-1.3); GLUCOSE 147 mg/dL (70-105); POTASSIUM 3.9 mEq/L (3.5-5.1); SODIUM 138 mEq/L (136-145); UREA NITROGEN BLOOD 33 mg/dL (9-23)
[2023-07-03] MEDS: BLOOD SUGAR DIAGNOSTIC STRIP TEST SCH ×4 (07:29→21:00)
[2023-07-03] MEDS: INSULIN LISPRO 100 UNITS/ML SUBCUT SCH ×4 (08:30→21:00)
[2023-07-03] MEDS: METOPROLOL TARTRATE 25MG TABLET PO SCH ×2 (08:31→20:29)
[2023-07-03] MEDS: SPIRONOLACTONE 25MG TABLET PO SCH (08:31)
[2023-07-03] MEDS: ASPIRIN 81MG TABLET PO SCH (08:31)
[2023-07-03] MEDS: FUROSEMIDE 40MG/4ML VIAL IV SCH ×2 (08:31→16:55)
[2023-07-03] MEDS: AMLODIPINE 5MG TABLET PO SCH (08:32)
[2023-07-03] MEDS: PANTOT AC/MIN OIL/PET HY-PHL OINT (AQUAPHOR) TOP SCH (08:39)
[2023-07-03] MEDS: VANCOMYCIN 1.25GM PMX (XELLIA) 250 ML IV SCH (20:28)
[2023-07-03] MEDS: ATORVASTATIN CALCIUM 40MG TABLET PO SCH (20:28)
[2023-07-04] VITALS: BP 147/77; PULSE 77; RESP 20; TEMP 98.7
[2023-07-04 04:00] VITALS: BP 138/69; PULSE 90; RESP 18; TEMP 97.8
[2023-07-04] MEDS: PIPERACILLIN/TAZOBACTAM 3.375 G in DEXTROSE 5% WATER 50 ML IV SCH (05:16)
[2023-07-04] MEDS: ENOXAPARIN 30MG/0.3ML SYR SUBCUT SCH (05:17)
[2023-07-04] MEDS: BLOOD SUGAR DIAGNOSTIC STRIP TEST SCH ×2 (05:58→11:50)
[2023-07-04 06:38] LABS: BASOPHILS % 0.4 % (0.0-2.0); EOSINOPHILS % 2.7 % (0.0-5.0); HEMATOCRIT. 38.8 % (42.0-52.0); HEMOGLOBIN. 12.9 g/dL (14.0-18.0); LYMPHOCYTES % 11.4 % (20.0-50.0); MEAN CORPUSCULAR HGB CONC 33.3 g/dL (31.0-37.0); MEAN CORPUSCULAR VOLUME 90.2 fL (80.0-94.0); MEAN PLATELET VOLUME 8.7 fl (7.4-10.4); MONOCYTES % 10.8 % (2.0-8.0); NEUTROPHILS % 74.7 % (40.0-76.0); PLATELET 156 x1000/uL (130-400); RED CELL DISTRIBUTION WIDTH 14.5 % (11.6-14.6); WHITE BLOOD COUNT 9.1 x1000/uL (4.5-11.0)
[2023-07-04 06:52] LABS: ALANINE AMINOTRANSFERASE 8 IU/L (10-49); ALBUMIN 3.8 g/dL (3.2-4.8); ASPARTATE AMINOTRANSFERASE 15 IU/L (<34); BILIRUBIN TOTAL 0.9 mg/dL (0.1-1.0); CALCIUM 9.5 mg/dL (8.7-10.4); CARBON DIOXIDE 33 mEq/L (21-32); CHLORIDE 100 mEq/L (98-107); CREATININE 1.2 mg/dL (0.6-1.3); GLUCOSE 158 mg/dL (70-105); POTASSIUM 4.1 mEq/L (3.5-5.1); PROTEIN TOTAL 7.1 g/dL (6.0-8.3); SODIUM 140 mEq/L (136-145); UREA NITROGEN BLOOD 28 mg/dL (9-23)
[2023-07-04] MEDS: INSULIN LISPRO 100 UNITS/ML SUBCUT SCH ×2 (07:20→12:06)
[2023-07-04 08:00] VITALS: BP 161/94; PULSE 88; RESP 20; TEMP 97.5
[2023-07-04] MEDS: ASPIRIN 81MG TABLET PO SCH (08:24)
[2023-07-04] MEDS: FUROSEMIDE 40MG/4ML VIAL IV SCH (08:24)
[2023-07-04] MEDS: METOPROLOL TARTRATE 25MG TABLET PO SCH (08:25)
[2023-07-04] MEDS: PANTOT AC/MIN OIL/PET HY-PHL OINT (AQUAPHOR) TOP SCH (08:25)
[2023-07-04] MEDS: SPIRONOLACTONE 25MG TABLET PO SCH (08:25)
[2023-07-04] MEDS: AMLODIPINE 5MG TABLET PO SCH (08:25)
[2023-07-04] MEDS ORDERED: LEVO-65 MT (08:54)
[2023-07-04] MEDS ORDERED: FURO-151 MT (08:54)
[2023-07-04] MEDS ORDERED: SPIR25TA MT (08:54)
[2023-07-04 09:54] VITALS: BP 138/69; PULSE 90; TEMP 97.5; O2SAT 98
[2023-07-04 12:00] VITALS: BP 171/99; PULSE 110; RESP 18; TEMP 97.9
[2023-07-04 13:24] VITALS: BP 134/95; PULSE 71; RESP 21
== END 2023-07-04 16:26 | disposition home or self-care (01) | DRG 280 ==
LOC: ER 09:22 → 3WST 11:20 → EDBEDREQTM 11:37 → EDBEDREQ 11:37
PROVIDERS: ADMIT Internal Medicine; ATTEND Internal Medicine
DX: I11.0 Hypertensive heart disease with heart failure (principal); I50.41 Acute combined systolic (congestive) and diastolic (congestive) heart failure; I21.A1 Myocardial infarction type 2; L03.90 Cellulitis, unspecified; N17.9 Acute kidney failure, unspecified; I48.92 Unspecified atrial flutter; N39.0 Urinary tract infection, site not specified; Z68.41 Body mass index [BMI] 40.0-44.9, adult; I35.0 Nonrheumatic aortic (valve) stenosis; I44.0 Atrioventricular block, first degree; I25.10 Atherosclerotic heart disease of native coronary artery without angina pectoris; I44.7 Left bundle-branch block, unspecified; I48.91 Unspecified atrial fibrillation; E66.01 Morbid (severe) obesity due to excess calories; B96.1 Klebsiella pneumoniae [K. pneumoniae] as the cause of diseases classified elsewhere; E11.22 Type 2 diabetes mellitus with diabetic chronic kidney disease; E78.00 Pure hypercholesterolemia, unspecified; I13.0 Hypertensive heart and chronic kidney disease with heart failure and stage 1 through stage 4 chronic kidney disease, or unspecified chronic kidney disease; I89.0 Lymphedema, not elsewhere classified; J45.909 Unspecified asthma, uncomplicated; N18.9 Chronic kidney disease, unspecified; Z96.653 Presence of artificial knee joint, bilateral; Z79.4 Long term (current) use of insulin; Z79.82 Long term (current) use of aspirin; Z79.899 Other long term (current) drug therapy; Z87.891 Personal history of nicotine dependence; Z95.2 Presence of prosthetic heart valve
CPT/HCPCS: 36415; 71045; 76700; 76770; 80048; 80053; 80061; 80202; 81003; 82550; 82607; 82728; 82746; 82962; 83036; 83540; 83550; 83880; 84145; 84439; 84443; 84484; 85025; 85379; 87186; 93005; 93306; 93970; 97116; 97162; 97166; 99285; J1650; J1815; J1940; J2543; J3370; J7060